=== PATIENT | female | born 1935 | race Hispanic/Latino ===

== ENCOUNTER 2016-10-01 11:08 | Outpatient (CLI) | payer MEDICARE ==
[2016-10-01] MEDS ORDERED: XYLOCAINE TOPICAL 2% TP ONE ×3 (11:31→11:43)
== END 2016-10-01 11:09 | disposition home or self-care (01) ==
LOC: WOUND 11:08
PROVIDERS: ATTEND Podiatrist
DX: I87.312 Chronic venous hypertension (idiopathic) with ulcer of left lower extremity (principal); L97.322 Non-pressure chronic ulcer of left ankle with fat layer exposed; E03.9 Hypothyroidism, unspecified; I25.2 Old myocardial infarction

== ENCOUNTER 2016-10-08 11:10 | Outpatient (CLI) | payer MEDICARE ==
[2016-10-08] MEDS ORDERED: XYLOCAINE TOPICAL 2% TP ONE ×2 (11:51→14:06)
== END 2016-10-08 11:11 | disposition home or self-care (01) ==
LOC: WOUND 11:10
PROVIDERS: ATTEND Podiatrist
DX: I87.312 Chronic venous hypertension (idiopathic) with ulcer of left lower extremity (principal); L97.821 Non-pressure chronic ulcer of other part of left lower leg limited to breakdown of skin; L97.322 Non-pressure chronic ulcer of left ankle with fat layer exposed; E03.8 Other specified hypothyroidism; E43 Unspecified severe protein-calorie malnutrition; I25.2 Old myocardial infarction

== ENCOUNTER 2016-10-11 11:55 | Outpatient (CLI) | payer MEDICARE ==
--- NOTE | 2016-10-11 13:13 | Mammography Report ---
Bilateral mammogram: Compared to 06/14/14. CAD utilized. Findings: Redundancy of the post tissue bilaterally. Bilateral benign calcifications. Normal axilla. No mass. Impression: Benign findings. Annual followup recommended. BI-RADS CATEGORY: 2 = Benign ACR BI-RADS MAMMOGRAPHIC CODES: 0 = Needs additional imaging evaluation; 1 = Negative; 2 = Benign; 3 = Probably benign; 4 = Suspicious; 5 = Malignant; 6 = Known biopsy-proven malignancy COMMENT: 1. Dense breast tissue, i.e., adenosis, fibrocystic changes, etc., may obscure an underlying neoplasm. 2. Approximately 10% of cancers are not detected with mammography. 3. A negative mammography report should not delay biopsy if a clinically suspicious mass is present. COMMENT: Patient follow-up letters are generated in [employer].
== END 2016-10-11 11:56 | disposition home or self-care (01) ==
LOC: MAMMO 11:55
PROVIDERS: ATTEND Internal Medicine
DX: Z12.31 Encounter for screening mammogram for malignant neoplasm of breast (principal)
CPT/HCPCS: 77067; G0202

== ENCOUNTER 2016-10-11 12:37 | Outpatient (CLI) | payer MEDICARE | END 2016-10-11 12:38 | disposition home or self-care (01) | LOC: WOUND 12:37 | PROVIDERS: ATTEND Podiatrist | DX: I87.312 Chronic venous hypertension (idiopathic) with ulcer of left lower extremity (principal); L97.321 Non-pressure chronic ulcer of left ankle limited to breakdown of skin; I87.2 Venous insufficiency (chronic) (peripheral); I25.2 Old myocardial infarction; E03.9 Hypothyroidism, unspecified | CPT/HCPCS: 29581 ==

== ENCOUNTER 2016-10-15 11:09 | Outpatient (CLI) | payer MEDICARE | END 2016-10-15 11:10 | disposition home or self-care (01) | LOC: WOUND 11:09 | PROVIDERS: ATTEND Podiatrist | DX: I87.312 Chronic venous hypertension (idiopathic) with ulcer of left lower extremity (principal); L97.322 Non-pressure chronic ulcer of left ankle with fat layer exposed; E03.8 Other specified hypothyroidism; E43 Unspecified severe protein-calorie malnutrition; I87.2 Venous insufficiency (chronic) (peripheral); I25.2 Old myocardial infarction | CPT/HCPCS: 99212; G0463 ==

== ENCOUNTER 2017-07-22 08:06 | Outpatient (CLI) | payer MEDICARE ==
[2017-07-22] MEDS ORDERED: XYLOCAINE TOPICAL 4% TP ONE (08:47)
== END 2017-07-22 08:07 | disposition home or self-care (01) ==
LOC: WOUND 08:06
PROVIDERS: ATTEND Surgery
DX: I87.2 Venous insufficiency (chronic) (peripheral) (principal); L97.822 Non-pressure chronic ulcer of other part of left lower leg with fat layer exposed; I25.10 Atherosclerotic heart disease of native coronary artery without angina pectoris; H91.90 Unspecified hearing loss, unspecified ear; Z90.710 Acquired absence of both cervix and uterus
CPT/HCPCS: 11042; G0463; 99214

== ENCOUNTER 2017-07-29 11:01 | Outpatient (CLI) | payer MEDICARE ==
[2017-07-29] MEDS ORDERED: XYLOCAINE TOPICAL 4% TP ONE ×2 (11:18→11:26)
[2017-07-29] MEDS ORDERED: XYLOCAINE TOPICAL 2% ONE (11:31)
== END 2017-07-29 11:02 | disposition home or self-care (01) ==
LOC: WOUND 11:01
PROVIDERS: ATTEND Surgery
DX: I87.2 Venous insufficiency (chronic) (peripheral) (principal); L97.822 Non-pressure chronic ulcer of other part of left lower leg with fat layer exposed; I25.10 Atherosclerotic heart disease of native coronary artery without angina pectoris; I25.2 Old myocardial infarction; E03.9 Hypothyroidism, unspecified

== ENCOUNTER 2017-08-05 11:25 | Outpatient (CLI) | payer MEDICARE ==
[2017-08-05] MEDS ORDERED: XYLOCAINE TOPICAL 4% TP ONE ×2 (11:50→11:56)
== END 2017-08-05 11:26 | disposition home or self-care (01) ==
LOC: WOUND 11:25
PROVIDERS: ATTEND Surgery
DX: I87.2 Venous insufficiency (chronic) (peripheral) (principal); L97.822 Non-pressure chronic ulcer of other part of left lower leg with fat layer exposed; I25.2 Old myocardial infarction; I25.10 Atherosclerotic heart disease of native coronary artery without angina pectoris; E03.9 Hypothyroidism, unspecified; Z90.710 Acquired absence of both cervix and uterus

== ENCOUNTER 2017-08-12 11:07 | Outpatient (CLI) | payer MEDICARE ==
[2017-08-12] MEDS ORDERED: XYLOCAINE TOPICAL 4% TP ONE ×2 (11:48→12:08)
== END 2017-08-12 11:08 | disposition home or self-care (01) ==
LOC: WOUND 11:07
PROVIDERS: ATTEND Surgery
DX: I87.2 Venous insufficiency (chronic) (peripheral) (principal); L97.822 Non-pressure chronic ulcer of other part of left lower leg with fat layer exposed; I25.10 Atherosclerotic heart disease of native coronary artery without angina pectoris; I25.2 Old myocardial infarction; E03.9 Hypothyroidism, unspecified; Z90.710 Acquired absence of both cervix and uterus

== ENCOUNTER 2017-08-14 14:10 | Outpatient (CLI) | payer MEDICARE ==
[2017-08-14] MEDS ORDERED: LOTRISONE TP ONE (14:30)
[2017-08-15] MEDS ORDERED: LOTRISONE TP ONE (12:00)
== END 2017-08-14 14:11 | disposition home or self-care (01) ==
LOC: WOUND 14:10
PROVIDERS: ATTEND Nurse Practitioner
DX: I87.2 Venous insufficiency (chronic) (peripheral) (principal); L97.822 Non-pressure chronic ulcer of other part of left lower leg with fat layer exposed; I25.2 Old myocardial infarction; I25.10 Atherosclerotic heart disease of native coronary artery without angina pectoris; E03.9 Hypothyroidism, unspecified; Z90.710 Acquired absence of both cervix and uterus
CPT/HCPCS: 99213; G0463

== ENCOUNTER 2017-08-19 11:15 | Outpatient (CLI) | payer MEDICARE ==
[2017-08-19] MEDS ORDERED: XYLOCAINE TOPICAL 4% TP ONE ×2 (11:49→11:53)
== END 2017-08-19 11:16 | disposition home or self-care (01) ==
LOC: WOUND 11:15
PROVIDERS: ATTEND Surgery
DX: I87.2 Venous insufficiency (chronic) (peripheral) (principal); L97.822 Non-pressure chronic ulcer of other part of left lower leg with fat layer exposed; I25.10 Atherosclerotic heart disease of native coronary artery without angina pectoris; I25.2 Old myocardial infarction; E03.9 Hypothyroidism, unspecified; Z90.710 Acquired absence of both cervix and uterus

== ENCOUNTER 2017-08-27 11:13 | Outpatient (CLI) | payer MEDICARE | END 2017-08-27 11:14 | disposition home or self-care (01) | LOC: WOUND 11:13 | PROVIDERS: ATTEND Surgery | DX: I87.2 Venous insufficiency (chronic) (peripheral) (principal); L97.822 Non-pressure chronic ulcer of other part of left lower leg with fat layer exposed; I25.10 Atherosclerotic heart disease of native coronary artery without angina pectoris; I25.2 Old myocardial infarction; E03.9 Hypothyroidism, unspecified; Z90.710 Acquired absence of both cervix and uterus ==

== ENCOUNTER 2017-09-05 11:29 | Outpatient (CLI) | payer MEDICARE | END 2017-09-05 11:30 | disposition home or self-care (01) | LOC: WOUND 11:29 | PROVIDERS: ATTEND Podiatrist | DX: I87.2 Venous insufficiency (chronic) (peripheral) (principal); L97.822 Non-pressure chronic ulcer of other part of left lower leg with fat layer exposed; I25.10 Atherosclerotic heart disease of native coronary artery without angina pectoris; I25.2 Old myocardial infarction; E03.9 Hypothyroidism, unspecified; Z90.710 Acquired absence of both cervix and uterus | CPT/HCPCS: 29580; G0463; 99213 ==

== ENCOUNTER 2017-09-12 11:11 | Outpatient (CLI) | payer MEDICARE ==
[2017-09-12] MEDS ORDERED: XYLOCAINE TOPICAL 4% TP ONE (11:40)
== END 2017-09-12 11:12 | disposition home or self-care (01) ==
LOC: WOUND 11:11
PROVIDERS: ATTEND Podiatrist
DX: I87.312 Chronic venous hypertension (idiopathic) with ulcer of left lower extremity (principal); L97.322 Non-pressure chronic ulcer of left ankle with fat layer exposed; H91.90 Unspecified hearing loss, unspecified ear; I25.2 Old myocardial infarction; E03.9 Hypothyroidism, unspecified; Z90.710 Acquired absence of both cervix and uterus

== ENCOUNTER 2017-09-23 11:00 | Outpatient (CLI) | payer MEDICARE ==
[2017-09-23] MEDS ORDERED: XYLOCAINE TOPICAL 4% TP ONE ×2 (11:45→11:47)
== END 2017-09-23 11:01 | disposition home or self-care (01) ==
LOC: WOUND 11:00
PROVIDERS: ATTEND Surgery
DX: I87.312 Chronic venous hypertension (idiopathic) with ulcer of left lower extremity (principal); L97.322 Non-pressure chronic ulcer of left ankle with fat layer exposed; I25.2 Old myocardial infarction; E03.9 Hypothyroidism, unspecified; Z90.710 Acquired absence of both cervix and uterus

== ENCOUNTER 2017-09-30 10:59 | Outpatient (CLI) | payer MEDICARE ==
[2017-09-30] MEDS ORDERED: XYLOCAINE TOPICAL 4% TP ONE (11:47)
== END 2017-09-30 11:00 | disposition home or self-care (01) ==
LOC: WOUND 10:59
PROVIDERS: ATTEND Surgery
DX: I87.312 Chronic venous hypertension (idiopathic) with ulcer of left lower extremity (principal); L97.322 Non-pressure chronic ulcer of left ankle with fat layer exposed; I25.2 Old myocardial infarction; E03.9 Hypothyroidism, unspecified; Z90.710 Acquired absence of both cervix and uterus
CPT/HCPCS: 29580

== ENCOUNTER 2017-10-07 11:05 | Outpatient (CLI) | payer MEDICARE ==
[2017-10-07] MEDS ORDERED: XYLOCAINE TOPICAL 4% TP ONE (11:55)
[2017-10-07] MEDS ORDERED: XYLOCAINE TOPICAL 2% 5ML ONE (12:11)
== END 2017-10-07 11:06 | disposition home or self-care (01) ==
LOC: WOUND 11:05
PROVIDERS: ATTEND Surgery
DX: I87.312 Chronic venous hypertension (idiopathic) with ulcer of left lower extremity (principal); L97.322 Non-pressure chronic ulcer of left ankle with fat layer exposed; I25.2 Old myocardial infarction; E03.9 Hypothyroidism, unspecified; Z96.652 Presence of left artificial knee joint; Z90.710 Acquired absence of both cervix and uterus
CPT/HCPCS: 97597

== ENCOUNTER 2018-02-04 10:57 | Outpatient (CLI) | payer MEDICARE ==
[2018-02-04] MEDS ORDERED: XYLOCAINE TOPICAL 4% TP ONE ×2 (11:22→11:28)
== END 2018-02-04 10:58 | disposition home or self-care (01) ==
LOC: WOUND 10:57
PROVIDERS: ATTEND Surgery
DX: L97.821 Non-pressure chronic ulcer of other part of left lower leg limited to breakdown of skin (principal); I87.2 Venous insufficiency (chronic) (peripheral); I25.2 Old myocardial infarction; E03.9 Hypothyroidism, unspecified; Z90.710 Acquired absence of both cervix and uterus
CPT/HCPCS: 11042; 29580; G0463

== ENCOUNTER 2018-02-18 11:14 | Outpatient (CLI) | payer MEDICARE ==
[2018-02-18] MEDS ORDERED: XYLOCAINE TOPICAL 2% 5ML ONE (11:28)
[2018-02-18] MEDS ORDERED: XYLOCAINE TOPICAL 2% 5ML TP ONE (12:02)
== END 2018-02-18 11:15 | disposition home or self-care (01) ==
LOC: WOUND 11:14
PROVIDERS: ATTEND Surgery
DX: L97.821 Non-pressure chronic ulcer of other part of left lower leg limited to breakdown of skin (principal); I87.2 Venous insufficiency (chronic) (peripheral); I25.2 Old myocardial infarction; E03.9 Hypothyroidism, unspecified; Z90.710 Acquired absence of both cervix and uterus
CPT/HCPCS: 29580

== ENCOUNTER 2018-02-24 11:04 | Outpatient (CLI) | payer MEDICARE ==
[2018-02-24] MEDS ORDERED: XYLOCAINE TOPICAL 4% TP ONE (11:06)
[2018-02-24] MEDS ORDERED: XYLOCAINE TOPICAL 2% 5ML ONE (11:07)
[2018-02-24] MEDS ORDERED: AD OINTMENT TP ONE (11:36)
[2018-02-24] MEDS ORDERED: AD OINTMENT TP PRN (11:52)
[2018-02-24] MEDS ORDERED: XYLOCAINE TOPICAL 2% 5ML TP ONE (14:02)
== END 2018-02-24 11:05 | disposition home or self-care (01) ==
LOC: WOUND 11:04
PROVIDERS: ATTEND Surgery
DX: L97.821 Non-pressure chronic ulcer of other part of left lower leg limited to breakdown of skin (principal); I87.2 Venous insufficiency (chronic) (peripheral); I25.2 Old myocardial infarction; E03.9 Hypothyroidism, unspecified
CPT/HCPCS: A6250

== ENCOUNTER 2018-03-03 10:54 | Outpatient (CLI) | payer MEDICARE ==
[2018-03-03] MEDS ORDERED: XYLOCAINE TOPICAL 2% 5ML TP ONE (11:58)
== END 2018-03-03 10:55 | disposition home or self-care (01) ==
LOC: WOUND 10:54
PROVIDERS: ATTEND Surgery
DX: L97.821 Non-pressure chronic ulcer of other part of left lower leg limited to breakdown of skin (principal); I87.2 Venous insufficiency (chronic) (peripheral); I25.2 Old myocardial infarction; E03.9 Hypothyroidism, unspecified; Z90.710 Acquired absence of both cervix and uterus

== ENCOUNTER 2018-03-10 11:10 | Outpatient (CLI) | payer MEDICARE ==
[2018-03-10] MEDS ORDERED: XYLOCAINE TOPICAL 2% 5ML ONE (11:50)
[2018-03-10] MEDS ORDERED: XYLOCAINE TOPICAL 2% 5ML TP ONE (12:10)
== END 2018-03-10 11:11 | disposition home or self-care (01) ==
LOC: WOUND 11:10
PROVIDERS: ATTEND Surgery
DX: L97.821 Non-pressure chronic ulcer of other part of left lower leg limited to breakdown of skin (principal); I87.2 Venous insufficiency (chronic) (peripheral); I25.2 Old myocardial infarction; E03.9 Hypothyroidism, unspecified; Z90.710 Acquired absence of both cervix and uterus
CPT/HCPCS: 99213; G0463

== ENCOUNTER 2019-04-17 11:41 | Emergency (ER) | payer MEDICARE ==
--- NOTE | 2019-04-17 11:52 | Event Note ---
ED Screening Note Date of service: 04/17/19 Time: 11:48 ED Screening Note: This is a 83 y.o. F. that presents to the ER with pruritic rash to BUE & BLE for 3-4 days. Patient states she think its poison matt because she was out in [facility] of Arthritis, ID with stents, and GERD This initial assessment/diagnostic orders/clinical plan/treatment(s) is/are subject to change based on patients health status, clinical progression and re- assessment by fellow clinical providers in the ED. Further treatment and workup at subsequent clinical providers discretion. Patient/guardian urged not to elope from the ED as their condition may be serious if not clinically assessed and managed. Initial orders include:
[2019-04-17 11:53] VITALS: BP 111/57
[2019-04-17] MEDS ORDERED: DECADRON IM ONE (12:17)
--- NOTE | 2019-04-17 12:55 | Emergency Department Report ---
ED Rash HPI - HPI Chief Complaint: Skin Rash Stated Complaint: RASH ALLOVER Time Seen by Provider: 04/17/19 11:48 Duration: 3 Days Location: Upper Extremities, Lower Extremities Suspected Cause: Plant (patient states she was in her garden and patient may have come in contact with poison oak.) Rash Symptoms: Yes Itching, No Facial Swelling, No Tongue/Oral Swelling, No B reathing Difficulties, No Choking Sensation, No Wheezing/Dyspnea, No Peeling, No Blistering ED Review of Systems ROS: Stated complaint: RASH ALLOVER Other details as noted in HPI Comment: All other systems reviewed and negative ED Past Medical Hx - Past Medical History Previous Medical History?: Yes Hx Hypertension: No Hx Heart Attack/AMI: Yes Hx GERD: Yes Hx Arthritis: Yes Hx Asthma: No (PT DENIES.) - Surgical History Past Surgical History?: Yes Hx Coronary Stent: Yes Hx Cholecystectomy: Yes (1995) Additional Surgical History: knee replacement - Social History Smoking Status: Never Smoker - Medications Home Medications: Home Medications Medication Instructions Recorded Confirmed Last Taken Type Sertraline [Zoloft] 100 mg PO QDAY 10/15/13 07/22/15 07/22/15 History clonazePAM [KlonoPIN] 2 mg PO DAILY 10/15/13 07/22/15 07/22/15 History Simvastatin (Nf) [Zocor TAB] 20 mg PO QHS #30 tablet 02/11/14 07/22/15 07/22/15 Rx Ciprofloxacin HCl [Ciprofloxacin 500 mg PO Q12HR #10 tab 07/22/15 Unknown Rx TAB] Clopidogrel [Plavix] 15 mg PO QDAY 07/22/15 07/22/15 07/22/15 History Phenazopyridine [Pyridium] 100 mg PO TID #6 tab 07/22/15 Unknown Rx Triamcinolone 0.1% [Kenalog 0.1% 1 applic TP TID #1 tube 04/17/19 Unknown Rx CREAM] predniSONE [Deltasone] 10 mg PO QDAY #5 tab 04/17/19 Unknown Rx Rash Exam - Exam General: Vital signs noted. No distress. Alert and acting appropriately. HEENT: No Periorbital Edema, No Conjuctival Injection, No Chemosis, No Perioral Edema, No Tongue Edema, No Uvular Edema, No Compromised Airway, No Drooling Lungs: Yes Good Air Exchange (Normal Breath Sounds), No Wheezes, No Ronchi, No Stridor, No Cough, No Labored Respirations, No Retractions, No Use of Accessory Muscles, No Other Abnormal Lung Sounds Heart: Yes Regular, No Murmur Skin: Yes Urticarial Rash (left elbow), Yes Maculopapular Rash (diffusely on the arms and bilateral lower legs. Patient had a T-shirt and shorts at the time she was in the garden. The rash does spare the area of her body that was covered), Yes Erythema, No Bulla(e), No Excoriations, No Weeping, No Tenderness, No Edema, No Encrustations Other: Positive: Abdomen Normal, Neurologic Normal, Musculoskeletal Normal ED Course Vital Signs 04/17/19 11:48 Temperature 97.5 F L Pulse Rate 69 Respiratory 18 Rate Blood Pressure 111/57 [Right] O2 Sat by Pulse 95 Oximetry ED Medical Decision Making - Medical Decision Making Patient has taken [id number] hydrocortisone cream with minimal relief. Patient was started on triamcinolone and was given a Decadron shot here in the emergency department. Patient can continue with her Benadryl. Critical care attestation.: If time is entered above; I have spent that time in minutes in the direct care of this critically ill patient, excluding procedure time. ED Disposition Clinical Impression: Poison oak dermatitis Disposition: -01 TO HOME OR SELFCARE Is pt being admited?: No Does the pt Need Aspirin: No Condition: Stable Instructions: Poison Unique (ED) Additional Instructions: Please continue to take 25 mg of Benadryl every 3 hours for itching as needed Referrals: TRESA KISER MD [Primary Care Provider] - 3-5 Days Time of Disposition: 12:55
== END 2019-04-17 13:11 | disposition home or self-care (01) ==
LOC: ED 11:41
DX: L23.7 Allergic contact dermatitis due to plants, except food (principal); I25.2 Old myocardial infarction; K21.9 Gastro-esophageal reflux disease without esophagitis; M19.90 Unspecified osteoarthritis, unspecified site; Z95.5 Presence of coronary angioplasty implant and graft; Z90.49 Acquired absence of other specified parts of digestive tract; Z98.890 Other specified postprocedural states; Z79.899 Other long term (current) drug therapy; Z88.2 Allergy status to sulfonamides
CPT/HCPCS: 96372; 99282; J1100

== ENCOUNTER 2019-06-28 12:41 | Emergency (ER) | payer MEDICARE ==
--- NOTE | 2019-06-28 13:18 | Event Note ---
ED Screening Note Date of service: 06/28/19 Time: 13:15 ED Screening Note: This is a 83 y.o. F. that presents to the ER with right knee pain and swelling s/p fall 4 days ago. Patient states she applied heat and elevation with no improvement of symptoms. This initial assessment/diagnostic orders/clinical plan/treatment(s) is/are subject to change based on patients health status, clinical progression and re- assessment by fellow clinical providers in the ED. Further treatment and workup at subsequent clinical providers discretion. Patient/guardian urged not to elope from the ED as their condition may be serious if not clinically assessed and managed. Initial orders include: XR right knee
[2019-06-28 13:20] VITALS: BP 112/55
--- NOTE | 2019-06-28 13:57 | XRay Report ---
RIGHT KNEE, 3 VIEWS INDICATION: swelling and pain, fall. COMPARISON: None. IMPRESSION: Borderline bone mineralization. Severe tricompartmental osteoarthritic changes are ident ified. No evidence for fracture, bone lesion or large osteochondral defect on x-ray. Small joint effu danny is noted in the lateral image. Signer Name: Efren Gomes Jr, MD Signed: 06/28/2019 1:52 PM Workstation Name: [id number]
--- NOTE | 2019-06-28 15:00 | Emergency Department Report ---
ED Lower Extremity HPI - General Chief Complaint: Fall Stated Complaint: RT LEG INJURY Time Seen by Provider: 06/28/19 13:15 Source: patient Mode of arrival: Ambulatory Limitations: No Limitations - History of Present Illness Initial Comments: pt is a 83-year-old female presents the emergency room with complaints of right knee pain that began 4 days ago. pt states that her knee gave out and she fell directly onto the right knee. She denies any dizziness, chest pain, palpitations, syncope prior to the fall. She denies having any surgeries on the right knee. She denies any numbness or weakness. She is ambulatory with mild discomfort. She has a past medical history of MA, hypothyroid, click,, depression. Denies any allergies medications. - Related Data Home Medications Medication Instructions Recorded Confirmed Last Taken Sertraline [Zoloft] 100 mg PO QDAY 10/15/13 07/22/15 07/22/15 clonazePAM [KlonoPIN] 2 mg PO DAILY 10/15/13 07/22/15 07/22/15 Clopidogrel [Plavix] 15 mg PO QDAY 07/22/15 07/22/15 07/22/15 Previous Rx's Medication Instructions Recorded Last Taken Type Simvastatin (Nf) [Zocor TAB] 20 mg PO QHS #30 tablet 02/11/14 07/22/15 Rx Ciprofloxacin HCl [Ciprofloxacin 500 mg PO Q12HR #10 tab 07/22/15 Unknown Rx TAB] Phenazopyridine [Pyridium] 100 mg PO TID #6 tab 07/22/15 Unknown Rx Triamcinolone 0.1% [Kenalog 0.1% 1 applic TP TID #1 tube 04/17/19 Unknown Rx CREAM] predniSONE [Deltasone] 10 mg PO QDAY #5 tab 04/17/19 Unknown Rx Acetaminophen [Acetaminophen 8 650 mg PO Q8HR PRN #14 tablet.er 06/28/19 Unknown Rx Hour] Allergies Allergy/AdvReac Type Severity Reaction Status Date / Time Sulfa (Sulfonamide Allergy Mild Rash Verified 04/17/19 11:48 Antibiotics) ED Review of Systems ROS: Stated complaint: RT LEG INJURY Other details as noted in HPI Comment: All other systems reviewed and negative ED Past Medical Hx - Past Medical History Previous Medical History?: Yes Hx Hypertension: No Hx Heart Attack/AMI: Yes Hx GERD: Yes Hx Arthritis: Yes Hx Asthma: No (PT DENIES.) - Surgical History Past Surgical History?: Yes Hx Coronary Stent: Yes Hx Cholecystectomy: Yes (1995) Additional Surgical History: knee replacement - Social History Smoking Status: Never Smoker Substance Use Type: None - Medications Home Medications: Home Medications Medication Instructions Recorded Confirmed Last Taken Type Sertraline [Zoloft] 100 mg PO QDAY 10/15/13 07/22/15 07/22/15 History clonazePAM [KlonoPIN] 2 mg PO DAILY 10/15/13 07/22/15 07/22/15 History Simvastatin (Nf) [Zocor TAB] 20 mg PO QHS #30 tablet 02/11/14 07/22/15 07/22/15 Rx Ciprofloxacin HCl [Ciprofloxacin 500 mg PO Q12HR #10 tab 07/22/15 Unknown Rx TAB] Clopidogrel [Plavix] 15 mg PO QDAY 07/22/15 07/22/15 07/22/15 History Phenazopyridine [Pyridium] 100 mg PO TID #6 tab 07/22/15 Unknown Rx Triamcinolone 0.1% [Kenalog 0.1% 1 applic TP TID #1 tube 04/17/19 Unknown Rx CREAM] predniSONE [Deltasone] 10 mg PO QDAY #5 tab 04/17/19 Unknown Rx Acetaminophen [Acetaminophen 8 650 mg PO Q8HR PRN #14 tablet.er 06/28/19 Unknown Rx Hour] ED Physical Exam - General Limitations: No Limitations General appearance: alert, in no apparent distress - Head Head exam: Present: atraumatic, normocephalic - Eye Eye exam: Present: normal appearance - ENT ENT exam: Present: mucous membranes moist - Extremities Exam Extremities exam: Present: other (mild edema to the right knee, no ecchymosis, no TTP, no deformity, FROM of the right knee with some discomfort upon full flexion, no obvious joint laxity, neurovascularly intact) - Neurological Exam Neurological exam: Present: alert, oriented X3 - Psychiatric Psychiatric exam: Present: normal affect, normal mood - Skin Skin exam: Present: warm, dry, intact ED Course Vital Signs 06/28/19 13:19 Temperature 97.9 F Pulse Rate 65 Respiratory 18 Rate Blood Pressure 112/55 O2 Sat by Pulse 94 Oximetry ED Lower Extremity MDM - Radiology Data Radiology results: report reviewed RIGHT KNEE, 3 VIEWS INDICATION: swelling and pain, fall. COMPARISON: None. IMPRESSION: Borderline bone mineralization. Severe tricompartmental osteoarthritic changes are identified. No evidence for fracture, bone lesion or large osteochondral defect on x-ray. Small joint effusion is noted in the lateral image. Signer Name: Efren Swanson Jr, MD Signed: 06/28/2019 1:52 PM Workstation Name: [id number] Transcribed By: TTR Dictated By: EFREN SWANSON JR, MD Electronically Authenticated By: EFREN SWANSON JR, MD Signed Date/Time: 06/28/19 1352 - Medical Decision Making pt is a 83-year-old female presents the emergency room with complaints of right knee pain that began 4 days ago. pt states that her knee gave out and she fell directly onto the right knee. She denies any dizziness, chest pain, palpitations, syncope prior to the fall. She denies having any surgeries on the right knee. She denies any numbness or weakness. She is ambulatory with mild discomfort. She has a past medical history of MA, hypothyroid, click,, depression. Denies any allergies medications. vitals are normal. on exam: mild edema to the right knee, no ecchymosis, no TTP, no deformity, FROM of the right knee with some discomfort upon full flexion, no obvious joint laxity, neurovascularly intact. XR of the right knee: Borderline bone mineralization. Severe tricompartmental osteoarthritic changes are identified. No evidence for fracture, bone lesion or large osteochondral defect on x-ray. Small joint effusion is noted in the lateral image. Discussed radiology findings with the patient. Patient's right knee wrapped with an Jose Guadalupe wrap. Patient given prescr iption for Tylenol to take as needed. advised pt to please take medication as prescribed as needed. May use rest, elevation of the leg, compression, ice or 15 minutes at a time. please remove Jose Guadalupe wrap at night and do not wear too tightly. follow up with an orthopedic doctor in the next 2-3 days for further examination. Return to the emergency room for any new or worsening symptoms. - Differential Diagnosis strain, sprain, fx, dislocation, tendon/ligament injury, effusion, arthriti Critical care attestation.: If time is entered above; I have spent that time in minutes in the direct care of this critically ill patient, excluding procedure time. ED Disposition Clinical Impression: Arthritis of knee Right knee pain Qualifiers: Chronicity: acute Qualified Code(s): M25.561 - Pain in right knee Joint effusion of knee Qualifiers: Laterality: right Qualified Code(s): M25.461 - Effusion, right knee Disposition: TO HOME OR SELFCARE Is pt being admited?: No Does the pt Need Aspirin: No Condition: Stable Instructions: Osteoarthritis (ED), Knee Effusion (ED), RICE Therapy (ED) Additional Instructions: please take medication as prescribed as needed. May use rest, elevation of the leg, compression, ice or 15 minutes at a time. please remove Jose Guadalupe wrap at night and do not wear too tightly. follow up with an orthopedic doctor in the next 2- 3 days for further examination. Return to the emergency room for any new or worsening symptoms. Prescriptions: Acetaminophen [Acetaminophen 8 Hour] 650 mg PO Q8HR PRN #14 tablet.er PRN Reason: pain Referrals: NICOLE MERINO MD [Staff Physician] - 2-3 Days [facility] [Provider Group] - 2-3 Days Time of Disposition: 14:59 Print Language: ANDORRAN
== END 2019-06-28 16:24 | disposition home or self-care (01) ==
LOC: ED 12:41
DX: M25.561 Pain in right knee (principal); M25.461 Effusion, right knee; K21.9 Gastro-esophageal reflux disease without esophagitis; M19.90 Unspecified osteoarthritis, unspecified site; I25.2 Old myocardial infarction; Z95.5 Presence of coronary angioplasty implant and graft; Z90.49 Acquired absence of other specified parts of digestive tract; Z98.890 Other specified postprocedural states; Z79.899 Other long term (current) drug therapy; Z88.2 Allergy status to sulfonamides

== ENCOUNTER 2021-03-08 13:09 | Emergency (ER) | payer MEDICARE ==
--- NOTE | 2021-03-08 13:45 | Event Note ---
ED Screening Note ED Screening Note: poor informant generalized weakness feel like I have a fever co abd pain/nausea/weakness pt has cardiac hx= see EMR denies pain in her chest pale on exam This initial assessment/diagnostic orders/clinical plan/treatment(s) is/are subject to change based on patients health status, clinical progression and re- assessment by fellow clinical providers in the ED. Further treatment and workup at subsequent clinical providers discretion. Patient/guardian urged not to elope from the ED as their condition may be serious if not clinically assessed and managed. Initial orders include: labs ekg xray
--- NOTE | 2021-03-08 14:22 | XRay Report ---
CHEST 2 VIEWS INDICATION / CLINICAL INFORMATION: Chest Pain. COMPARISON: None available. FINDINGS: SUPPORT DEVICES: None. HEART / MEDIASTINUM: No significant abnormality. LUNGS / PLEURA: No significant pulmonary or pleural abnormality. No pneumothorax. ADDITIONAL FINDINGS: No significant additional findings. IMPRESSION: 1. No acute findings. Signer Name: Brice Burrell MD Signed: 03/08/2021 2:18 PM Workstation Name: [id number]
--- NOTE | 2021-03-08 14:31 | Electrocardiograph Report ---
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
[2021-03-08 14:58] LABS: Basophils % (Auto) 0.5 % (0.0-1.8); Eosinophils # (Auto) 0.1 K/mm3 (0.0-0.4); Eosinophils % (Auto) 2.2 % (0.0-4.3); Hematocrit 35.9 % (30.3-42.9); Hemoglobin 12.1 gm/dl (10.1-14.3); Lymphocytes # (Auto) 1.1 K/mm3 (1.2-5.4); Lymphocytes % (Auto) 16.9 % (13.4-35.0); Mean Corpuscular HGB Conc 34 % (30-34); Mean Corpuscular Volume 95 fl (79-97); Platelet Count 189 K/mm3 (140-440); Red Blood Count 3.77 M/mm3 (3.65-5.03)
[2021-03-08 15:09] LABS: Partial Thromboplastin Time 31.7 Sec. (24.2-36.6)
[2021-03-08 15:21] LABS: Alanine Aminotransferase 55 units/L (7-56); Albumin 3.8 g/dL (3.9-5); BUN/Creatinine Ratio 19; Blood Urea Nitrogen 19 mg/dL (7-17); Hemolysis Index 4
--- NOTE | 2021-03-08 17:07 | Emergency Department Report ---
HPI - General Chief Complaint: Abdominal Pain Time Seen by Provider: 03/08/21 13:45 - HPI HPI: This is an 85-year-old female presents to the emergency department with a complaint of a 4 to 5-day history of left-sided abdominal pain, worst in the left lower quadrant. The patient also says that she has some chills. She denies any fever, nausea, vomiting, dysuria, vaginal bleeding or discharge. She does admit to some constipation but also says that she has had some recent bowel movements. The patient tried some gas pills for her symptoms without any relief. She has a past medical history of GERD, coronary artery disease with previous ID and cardiac stents. she has a surgical history of knee replacements and a previous cholecystectomy. Her primary care physician is Dr. Zepeda, but she has not seen them regarding her symptoms. No recent travel or sick contacts at home. Her abdominal pain worsens when she goes to get up from laying or sitting and improves when she is laying flat or at rest. ED Past Medical Hx - Past Medical History Previous Medical History?: Yes Hx Hypertension: No Hx Heart Attack/AMI: Yes Hx GERD: Yes Hx Arthritis: Yes Hx Asthma: No (PT DENIES.) - Surgical History Hx Coronary Stent: Yes Hx Cholecystectomy: Yes (1995) Additional Surgical History: knee replacement - Social History Smoking Status: Never Smoker Substance Use Type: None - Medications Home Medications: Home Medications Medication Instructions Recorded Confirmed Last Taken Type Sertraline [Zoloft] 100 mg PO QDAY 10/15/13 07/22/15 07/22/15 History clonazePAM [KlonoPIN] 2 mg PO DAILY 10/15/13 07/22/15 07/22/15 History Simvastatin (Nf) [Zocor TAB] 20 mg PO QHS #30 tablet 02/11/14 07/22/15 07/22/15 Rx Clopidogrel [Plavix] 15 mg PO QDAY 07/22/15 07/22/15 07/22/15 History Docusate Sodium [Colace] 100 mg PO BID PRN #20 capsule 03/08/21 Unknown Rx Nitrofurantoin Thayer/M-Cryst 100 mg PO Q12HR #14 capsule 03/08/21 Unknown Rx [Macrobid CAP] ED Review of Systems ROS: Stated complaint: GEN WEAKNESS Other details as noted in HPI Comment: All other systems reviewed and negative Constitutional: chills. denies: fever Eyes: denies: eye pain, vision change ENT: denies: ear pain, throat pain Respiratory: denies: cough, shortness of breath Cardiovascular: denies: chest pain, palpitations Gastrointestinal: abdominal pain, constipation. denies: nausea, vomiting Genitourinary: denies: dysuria, discharge Musculoskeletal: denies: back pain, arthralgia Skin: denies: rash, lesions Neurological: denies: headache, weakness Physical Exam - Physical Exam Vital Signs: Vital Signs 03/08/21 13:45 Temperature 97.7 F Pulse Rate 64 Respiratory 20 Rate Blood Pressure 107/88 [Right] O2 Sat by Pulse 96 Oximetry Physical Exam: GENERAL: The patient is well-developed well-nourished. HENT: Normocephalic. Atraumatic. Patient has moist mucous membranes. EYES: Extraocular motions are intact. NECK: Supple. Trachea is midline. CHEST/LUNGS: Clear to auscultation. There is no respiratory distress noted. HEART/CARDIOVASCULAR: Regular. There is no tachycardia. There is no murmur. ABDOMEN: Abdomen is soft. There is left lower quadrant abdominal tenderness to palpation. No guarding. Patient has normal bowel sounds. There is no abdominal distention. SKIN: Skin is warm and dry. NEURO: The patient is awake, alert, and oriented. The patient is cooperative. Normal speech. MUSCULOSKELETAL: There is no tenderness or deformity. There is no limitation range of motion. ED Course Vital Signs 03/08/21 13:45 Temperature 97.7 F Pulse Rate 64 Respiratory 20 Rate Blood Pressure 107/88 [Right] O2 Sat by Pulse 96 Oximetry ED Medical Decision Making - Lab Data Result diagrams: 03/08/21 14:26 03/08/21 14:26 Lab Results 03/08/21 03/08/21 03/08/21 Range/Units 14:26 14:26 14:26 WBC 6.6 (4.5-11.0) K/mm3 RBC 3.77 (3.65-5.03) M/mm3 Hgb 12.1 (10.1-14.3) gm/dl Hct 35.9 (30.3-42.9) % MCV 95 (79-97) fl MCH 32 (28-32) pg MCHC 34 (30-34) % RDW 13.0 L (13.2-15.2) % Plt Count 189 (140-440) K/mm3 Lymph % (Auto) 16.9 (13.4-35.0) % Thayer % (Auto) 15.0 H (0.0-7.3) % Eos % (Auto) 2.2 (0.0-4.3) % Baso % (Auto) 0.5 (0.0-1.8) % Lymph # (Auto) 1.1 L (1.2-5.4) K/mm3 Thayer # (Auto) 1.0 H (0.0-0.8) K/mm3 Eos # (Auto) 0.1 (0.0-0.4) K/mm3 Baso # (Auto) 0.0 (0.0-0.1) K/mm3 Seg Neutrophils % 65.4 (40.0-70.0) % Seg Neutrophils # 4.3 (1.8-7.7) K/mm3 PT 13.8 (12.2-14.9) Sec. INR 1.00 (0.87-1.13) APTT 31.7 (24.2-36.6) Sec. Sodium 139 (137-145) mmol/L Potassium 4.3 (3.6-5.0) mmol/L Chloride 101.8 (98-107) mmol/L Carbon Dioxide 30 (22-30) mmol/L Anion Gap 12 mmol/L BUN 19 H (7-17) mg/dL Creatinine 1.0 (0.6-1.2) mg/dL Estimated GFR 53 ml/min BUN/Creatinine Ratio 19 % Glucose 96 (65-100) mg/dL Calcium 9.0 (8.4-10.2) mg/dL Total Bilirubin 0.60 (0.1-1.2) mg/dL AST 82 H (5-40) units/L ALT 55 (7-56) units/L Alkaline Phosphatase 141 H (35-129) units/L Troponin T < 0.010 (0.00-0.029) ng/mL Total Protein 6.7 (6.3-8.2) g/dL Albumin 3.8 L (3.9-5) g/dL Albumin/Globulin Ratio 1.3 % Lipase 68 H (13-60) units/L TSH (0.270-4.200) mlU/mL Free T4 (0.76-1.46) ng/dL 03/08/21 03/08/21 Range/Units 14:26 14:26 WBC (4.5-11.0) K/mm3 RBC (3.65-5.03) M/mm3 Hgb (10.1-14.3) gm/dl Hct (30.3-42.9) % MCV (79-97) fl MCH (28-32) pg MCHC (30-34) % RDW (13.2-15.2) % Plt Count (140-440) K/mm3 Lymph % (Auto) (13.4-35.0) % Thayer % (Auto) (0.0-7.3) % Eos % (Auto) (0.0-4.3) % Baso % (Auto) (0.0-1.8) % Lymph # (Auto) (1.2-5.4) K/mm3 Thayer # (Auto) (0.0-0.8) K/mm3 Eos # (Auto) (0.0-0.4) K/mm3 Baso # (Auto) (0.0-0.1) K/mm3 Seg Neutrophils % (40.0-70.0) % Seg Neutrophils # (1.8-7.7) K/mm3 PT (12.2-14.9) Sec. INR (0.87-1.13) APTT (24.2-36.6) Sec. Sodium (137-145) mmol/L Potassium (3.6-5.0) mmol/L Chloride (98-107) mmol/L Carbon Dioxide (22-30) mmol/L Anion Gap mmol/L BUN (7-17) mg/dL Creatinine (0.6-1.2) mg/dL Estimated GFR ml/min BUN/Creatinine Ratio % Glucose (65-100) mg/dL Calcium (8.4-10.2) mg/dL Total Bilirubin (0.1-1.2) mg/dL AST (5-40) units/L ALT (7-56) units/L Alkaline Phosphatase (35-129) units/L Troponin T (0.00-0.029) ng/mL Total Protein (6.3-8.2) g/dL Albumin (3.9-5) g/dL Albumin/Globulin Ratio % Lipase (13-60) units/L TSH 7.620 H (0.270-4.200) mlU/mL Free T4 1.19 (0.76-1.46) ng/dL - Radiology Data Radiology results: report reviewed, image reviewed interpreted by me: Chest x-ray does not show any acute process. There are no pleural effusions, obvious pneumonia and there is no pneumothorax. CT ABDOMEN AND PELVIS WITH CONTRAST HISTORY: Left-sided abdominal pain COMPARISON: None TECHNIQUE: Routine abdominal and pelvic CT exam performed following intravenous contrast administration.. All CT scans at this location are performed using CT dose reduction for ALARA by means of automated exposure control. FINDINGS: CT ABDOMEN: Lung Bases: No significant abnormality. Liver: No significant abnormality. Biliary: Gallbladder is surgically absent. Spleen: No significant abnormality. Unenlarged. Pancreas: No significant abnormality. Adrenals: No significant abnormality. Kidneys: No significant abnormality. Lymphatics: No lymphadenopathy. Vasculature: No significant abnormality. B owel/Peritoneum: Nonobstructive bowel. Sigmoid diverticulosis without mesocolonic fat stranding. No free air. No free fluid. Normal appendix. CT PELVIC: : The uterus is surgically absent. There are no pelvic masses. Lymphatics: No lymphadenopathy. Osseous Structures: No aggressive appearing osseous lesions. Additional Findings: None IMPRESSION: 1. No acute findings or findings to explain left-sided abdominal pain. - Medical Decision Making This patient presents to the emergency department with a 4 to 5-day history of some left-sided abdominal pain, mostly in the left lower quadrant. On examination she has very mild reproducible left lower quadrant abdominal tenderness to palpation. The abdomen is soft, nondistended and nontoxic in appearance. Patient's labs have been mostly unremarkable except for an elevated AST of about 80, slightly elevated lipase level, and a urinary tract infection. Patient had a chest x-ray done through triage that did not show any pneumonia, pleural effusions, pneumothorax, focal consolidation, widened mediastinum, or any other acute process. CT of the abdomen and pelvis with IV contrast did not show any etiology of the patient's discomfort. Vital signs reassuring throughout her ED course including being afebrile. She appears safe for discharge home at this time. She has good outpatient follow-up with her PCP, Dr. Zepeda. She will be given a referral for [facility] regarding her abdominal pains. She has been given a prescription for an antibiotic for her urinary tract infection. She will return to the emergency department with any worsening of her symptoms or with any acute distress. Critical Care Time: No Critical care attestation.: If time is entered above; I have spent that time in minutes in the direct care of this critically ill patient, excluding procedure time. ED Disposition Clinical Impression: Elevated liver enzymes Abdominal pain Qualifiers: Abdominal location: left lower quadrant Qualified Code(s): R10.32 - Left lower quadrant pain Hypothyroid Qualifiers: Hypothyroidism type: unspecified Qualified Code(s): E03.9 - Hypothyroidism, unspecified UTI (urinary tract infection) Qualifiers: Urinary tract infection type: acute cystitis Hematuria presence: without hematuria Qualified Code(s): N30.00 - Acute cystitis without hematuria Disposition: TO HOME OR SELFCARE Is pt being admited?: No Condition: Stable Instructions: Abdominal Pain, Adult, Hypothyroidism, Urinary Tract Infection, Adult, Abdominal Pain (ED) Additional Instructions: Please follow-up with your primary care physician in the next few days. I am giving you a referral for [facility] to follow-up regarding your abdominal pains. Your labs today showed an elevation in one of your liver enzymes, AST. Because of this, please avoid any alcohol use or any Tylenol/acetaminophen use. Return to the emergency department with any worsening of your symptoms, new or concerning symptoms not addressed during this current emergency department visit, or with any acute distress. Prescriptions: Docusate Sodium [Colace] 100 mg PO BID PRN #20 capsule PRN Reason: Constipation Nitrofurantoin Thayer/M-Cryst [Macrobid CAP] 100 mg PO Q12HR #14 capsule Referrals: Jimbo FRAUSTO MD [Primary Care Provider] - 2-3 Days [facility] [Provider Group] - 2-3 Days Time of Disposition: 20:07
--- NOTE | 2021-03-08 17:48 | Cat Scan Report ---
CT ABDOMEN AND PELVIS WITH CONTRAST HISTORY: Left-sided abdominal pain COMPARISON: None TECHNIQUE: Routine abdominal and pelvic CT exam performed following intravenous contrast administrat ion.. All CT scans at this location are performed using CT dose reduction for ALARA by means of autom ated exposure control. FINDINGS: CT ABDOMEN: Lung Bases: No significant abnormality. Liver: No significant abnormality. Biliary: Gallbladder is surgically absent. Spleen: No significant abnormality. Unenlarged. Pancreas: No significant abnormality. Adrenals: No significant abnormality. Kidneys: No significant abnormality. Lymphatics: No lymphadenopathy. Vasculature: No significant abnormality. Bowel/Peritoneum: Nonobstructive bowel. Sigmoid diverticulosis without mesocolonic fat stranding. No free air. No free fluid. Normal appendix. CT PELVIC: : The uterus is surgically absent. There are no pelvic masses. Lymphatics: No lymphadenopathy. Osseous Structures: No aggressive appearing osseous lesions. Additional Findings: None IMPRESSION: 1. No acute findings or findings to explain left-sided abdominal pain. Signer Name: Brice Burrell MD Signed: 03/08/2021 5:43 PM Workstation Name: [id number]
[2021-03-08 20:06] LABS: Bilirubin,Urine NEG (Negative); Blood,Urine NEG (Negative); Color,Urine Yellow (Yellow); Protein,Urine <15 mg/dL mg/dL (Negative); Urobilinogen,Urine < 2.0 mg/dL (<2.0)
[2021-03-08 21:07] VITALS: BP 144/57
== END 2021-03-08 21:37 | disposition home or self-care (01) ==
LOC: ED 13:09
DX: N39.0 Urinary tract infection, site not specified (principal); E03.9 Hypothyroidism, unspecified; R10.32 Left lower quadrant pain; R94.5 Abnormal results of liver function studies; I25.2 Old myocardial infarction; K21.9 Gastro-esophageal reflux disease without esophagitis; M19.91 Primary osteoarthritis, unspecified site; Z90.49 Acquired absence of other specified parts of digestive tract; Z79.899 Other long term (current) drug therapy; Z88.2 Allergy status to sulfonamides
CPT/HCPCS: 36415; 71046; 74177; 80053; 81001; 83690; 84439; 84443; 84484; 85025; 85610; 85730; 93005; 99284; Q9967

== ENCOUNTER 2021-07-16 13:07 | Outpatient (CLI) | payer MEDICARE ==
[2021-07-16] MEDS ORDERED: LIDOCAINE (4%) 40 MG/ML TOPICAL SOLN 50 ML BOTTLE TP ONE (14:30)
== END 2021-07-16 13:08 | disposition home or self-care (01) ==
LOC: WOUND 13:07
PROVIDERS: ATTEND Surgery
DX: I87.312 Chronic venous hypertension (idiopathic) with ulcer of left lower extremity (principal); L97.322 Non-pressure chronic ulcer of left ankle with fat layer exposed; S91.002A Unspecified open wound, left ankle, initial encounter; I87.2 Venous insufficiency (chronic) (peripheral); I25.2 Old myocardial infarction; E03.9 Hypothyroidism, unspecified; H40.89 Other specified glaucoma; Z95.818 Presence of other cardiac implants and grafts; Z90.710 Acquired absence of both cervix and uterus; X58.XXXA Exposure to other specified factors, initial encounter; Y93.89 Activity, other specified; Y92.89 Other specified places as the place of occurrence of the external cause; Y99.8 Other external cause status
CPT/HCPCS: 11042; G0463; 99204; 99214

== ENCOUNTER 2021-07-30 09:34 | Outpatient (CLI) | payer MEDICARE ==
[2021-07-30] MEDS ORDERED: LIDOCAINE (4%) 40 MG/ML TOPICAL SOLN 50 ML BOTTLE TP SCH (10:30)
== END 2021-07-30 09:35 | disposition home or self-care (01) ==
LOC: WOUND 09:34
PROVIDERS: ATTEND Surgery
DX: I87.312 Chronic venous hypertension (idiopathic) with ulcer of left lower extremity (principal); L97.322 Non-pressure chronic ulcer of left ankle with fat layer exposed; E03.9 Hypothyroidism, unspecified; H40.9 Unspecified glaucoma; S91.002D Unspecified open wound, left ankle, subsequent encounter; I25.2 Old myocardial infarction; H40.89 Other specified glaucoma; Z95.818 Presence of other cardiac implants and grafts; Z90.710 Acquired absence of both cervix and uterus; X58.XXXD Exposure to other specified factors, subsequent encounter

== ENCOUNTER 2021-08-20 10:49 | Outpatient (CLI) | payer MEDICARE ==
[2021-08-20] MEDS ORDERED: LIDOCAINE (4%) 40 MG/ML TOPICAL SOLN 50 ML BOTTLE TP ONE (10:54)
== END 2021-08-20 10:50 | disposition home or self-care (01) ==
LOC: WOUND 10:49
PROVIDERS: ATTEND Surgery
DX: I87.312 Chronic venous hypertension (idiopathic) with ulcer of left lower extremity (principal); L97.322 Non-pressure chronic ulcer of left ankle with fat layer exposed; E03.9 Hypothyroidism, unspecified; H40.9 Unspecified glaucoma; S91.002D Unspecified open wound, left ankle, subsequent encounter; I25.2 Old myocardial infarction; H40.89 Other specified glaucoma; Z95.818 Presence of other cardiac implants and grafts; Z90.710 Acquired absence of both cervix and uterus; X58.XXXD Exposure to other specified factors, subsequent encounter

== ENCOUNTER 2021-09-03 10:29 | Outpatient (CLI) | payer MEDICARE ==
[2021-09-03] MEDS ORDERED: LIDOCAINE (4%) 40 MG/ML TOPICAL SOLN 50 ML BOTTLE TP ONE (12:03)
== END 2021-09-03 10:30 | disposition home or self-care (01) ==
LOC: WOUND 10:29
PROVIDERS: ATTEND Surgery
DX: I87.312 Chronic venous hypertension (idiopathic) with ulcer of left lower extremity (principal); L97.322 Non-pressure chronic ulcer of left ankle with fat layer exposed; S91.002D Unspecified open wound, left ankle, subsequent encounter; E03.9 Hypothyroidism, unspecified; H40.9 Unspecified glaucoma; I25.2 Old myocardial infarction; H40.89 Other specified glaucoma; Z95.818 Presence of other cardiac implants and grafts; Z90.710 Acquired absence of both cervix and uterus; X58.XXXD Exposure to other specified factors, subsequent encounter

== ENCOUNTER 2021-09-24 08:52 | Outpatient (CLI) | payer MEDICARE ==
[2021-09-24] MEDS ORDERED: LIDOCAINE (4%) 40 MG/ML TOPICAL SOLN 50 ML BOTTLE TP ONE (10:14)
== END 2021-09-24 08:53 | disposition home or self-care (01) ==
LOC: WOUND 08:52
PROVIDERS: ATTEND Surgery
DX: I87.312 Chronic venous hypertension (idiopathic) with ulcer of left lower extremity (principal); L97.322 Non-pressure chronic ulcer of left ankle with fat layer exposed; S91.002D Unspecified open wound, left ankle, subsequent encounter; E03.9 Hypothyroidism, unspecified; H40.9 Unspecified glaucoma; I25.2 Old myocardial infarction; H40.89 Other specified glaucoma; Z95.818 Presence of other cardiac implants and grafts; Z90.710 Acquired absence of both cervix and uterus; X58.XXXD Exposure to other specified factors, subsequent encounter

== ENCOUNTER 2021-10-08 09:16 | Outpatient (CLI) | payer MEDICARE ==
[2021-10-08] MEDS ORDERED: LIDOCAINE (4%) 40 MG/ML TOPICAL SOLN 50 ML BOTTLE TP ONE (10:10)
== END 2021-10-08 09:17 | disposition home or self-care (01) ==
LOC: WOUND 09:16
PROVIDERS: ATTEND Surgery
DX: I87.312 Chronic venous hypertension (idiopathic) with ulcer of left lower extremity (principal); L97.322 Non-pressure chronic ulcer of left ankle with fat layer exposed; S91.002D Unspecified open wound, left ankle, subsequent encounter; E03.9 Hypothyroidism, unspecified; H40.9 Unspecified glaucoma; I25.2 Old myocardial infarction; H40.89 Other specified glaucoma; Z95.818 Presence of other cardiac implants and grafts; Z90.710 Acquired absence of both cervix and uterus; X58.XXXD Exposure to other specified factors, subsequent encounter

== ENCOUNTER 2021-10-22 11:20 | Outpatient (CLI) | payer MEDICARE ==
[2021-10-22] MEDS ORDERED: LIDOCAINE (4%) 40 MG/ML TOPICAL SOLN 50 ML BOTTLE TP ONE (11:23)
== END 2021-10-22 11:21 | disposition home or self-care (01) ==
LOC: WOUND 11:20
PROVIDERS: ATTEND Surgery
DX: I87.312 Chronic venous hypertension (idiopathic) with ulcer of left lower extremity (principal); L97.322 Non-pressure chronic ulcer of left ankle with fat layer exposed; S91.002D Unspecified open wound, left ankle, subsequent encounter; E03.9 Hypothyroidism, unspecified; H40.9 Unspecified glaucoma; I25.2 Old myocardial infarction; H40.89 Other specified glaucoma; Z95.818 Presence of other cardiac implants and grafts; Z90.710 Acquired absence of both cervix and uterus; X58.XXXD Exposure to other specified factors, subsequent encounter
CPT/HCPCS: 99214; G0463

== ENCOUNTER 2021-10-29 10:34 | Outpatient (CLI) | payer MEDICARE ==
[2021-10-29] MEDS ORDERED: LIDOCAINE (4%) 40 MG/ML TOPICAL SOLN 50 ML BOTTLE TP ONE (11:17)
== END 2021-10-29 10:35 | disposition home or self-care (01) ==
LOC: WOUND 10:34
PROVIDERS: ATTEND Surgery
DX: I87.312 Chronic venous hypertension (idiopathic) with ulcer of left lower extremity (principal); L97.322 Non-pressure chronic ulcer of left ankle with fat layer exposed; S91.002D Unspecified open wound, left ankle, subsequent encounter; I87.2 Venous insufficiency (chronic) (peripheral); I25.2 Old myocardial infarction; E03.9 Hypothyroidism, unspecified; H40.9 Unspecified glaucoma; Z95.818 Presence of other cardiac implants and grafts; Z90.710 Acquired absence of both cervix and uterus; X58.XXXD Exposure to other specified factors, subsequent encounter
CPT/HCPCS: 15271; Q4186

== ENCOUNTER 2021-11-19 09:01 | Outpatient (CLI) | payer MEDICARE ==
[2021-11-19] MEDS ORDERED: LIDOCAINE (4%) 40 MG/ML TOPICAL SOLN 50 ML BOTTLE TP ONE (09:05)
== END 2021-11-19 09:02 | disposition home or self-care (01) ==
LOC: WOUND 09:01
PROVIDERS: ATTEND Surgery
DX: S91.002D Unspecified open wound, left ankle, subsequent encounter (principal); I87.312 Chronic venous hypertension (idiopathic) with ulcer of left lower extremity; L97.322 Non-pressure chronic ulcer of left ankle with fat layer exposed; I25.2 Old myocardial infarction; E03.9 Hypothyroidism, unspecified; H40.9 Unspecified glaucoma; Z95.818 Presence of other cardiac implants and grafts; Z90.710 Acquired absence of both cervix and uterus; X58.XXXD Exposure to other specified factors, subsequent encounter
CPT/HCPCS: 15271; Q4186

== ENCOUNTER 2021-12-03 10:54 | Outpatient (CLI) | payer MEDICARE | END 2021-12-03 10:55 | disposition home or self-care (01) | LOC: WOUND 10:54 | PROVIDERS: ATTEND Surgery | DX: S91.002D Unspecified open wound, left ankle, subsequent encounter (principal); I87.312 Chronic venous hypertension (idiopathic) with ulcer of left lower extremity; L97.322 Non-pressure chronic ulcer of left ankle with fat layer exposed; I25.2 Old myocardial infarction; E03.9 Hypothyroidism, unspecified; H40.9 Unspecified glaucoma; Z95.818 Presence of other cardiac implants and grafts; Z90.710 Acquired absence of both cervix and uterus; X58.XXXD Exposure to other specified factors, subsequent encounter | CPT/HCPCS: 99214; G0463 ==

== ENCOUNTER 2022-02-04 09:06 | Outpatient (CLI) | payer MEDICARE ==
[2022-02-04] MEDS ORDERED: LIDOCAINE (4%) 40 MG/ML TOPICAL SOLN 50 ML BOTTLE TP NR (09:26)
== END 2022-02-04 09:07 | disposition home or self-care (01) ==
LOC: WOUND 09:06
PROVIDERS: ATTEND Surgery
DX: I87.312 Chronic venous hypertension (idiopathic) with ulcer of left lower extremity (principal); L97.322 Non-pressure chronic ulcer of left ankle with fat layer exposed; I25.2 Old myocardial infarction; H40.9 Unspecified glaucoma; Z95.818 Presence of other cardiac implants and grafts; Z90.710 Acquired absence of both cervix and uterus; Z79.899 Other long term (current) drug therapy

== ENCOUNTER 2022-03-04 09:08 | Outpatient (CLI) | payer MEDICARE ==
[~2022-03-04 09:08] MED LIST: LIDOCAINE (4%) 40 MG/ML TOPICAL SOLN 50 ML BOTTLE TP NR
== END 2022-03-04 09:09 | disposition home or self-care (01) ==
LOC: WOUND 09:08
PROVIDERS: ATTEND Surgery
DX: I87.312 Chronic venous hypertension (idiopathic) with ulcer of left lower extremity (principal); L97.322 Non-pressure chronic ulcer of left ankle with fat layer exposed; E03.9 Hypothyroidism, unspecified; I25.2 Old myocardial infarction; H40.9 Unspecified glaucoma; Z95.818 Presence of other cardiac implants and grafts; Z90.710 Acquired absence of both cervix and uterus; Z79.899 Other long term (current) drug therapy

== ENCOUNTER 2022-03-11 08:14 | Outpatient (CLI) | payer MEDICARE ==
[2022-03-11] MEDS ORDERED: LIDOCAINE (4%) 40 MG/ML TOPICAL SOLN 50 ML BOTTLE TP ONE (08:54)
== END 2022-03-11 08:15 | disposition home or self-care (01) ==
LOC: WOUND 08:14
PROVIDERS: ATTEND Surgery
DX: I87.312 Chronic venous hypertension (idiopathic) with ulcer of left lower extremity (principal); L97.322 Non-pressure chronic ulcer of left ankle with fat layer exposed; E03.9 Hypothyroidism, unspecified; I25.2 Old myocardial infarction; H40.9 Unspecified glaucoma; Z95.818 Presence of other cardiac implants and grafts; Z90.710 Acquired absence of both cervix and uterus; Z79.899 Other long term (current) drug therapy